=== PATIENT | female | born 1995 | race Caucasian/White ===

== ENCOUNTER 2019-04-12 11:27 | Emergency (ER) | payer BC ==
[~2019-04-12] VITALS: Ht 162.6 cm; Wt 70.8 kg
[2019-04-12 11:31] VITALS: Ht 162.6 cm; Wt 70.8 kg
[2019-04-12 13:46] VITALS: BP 123/78
== END 2019-04-12 13:46 | disposition home or self-care (01) ==
LOC: ED 11:27
DX: J01.90 Acute sinusitis, unspecified (principal); K08.89 Other specified disorders of teeth and supporting structures; Z98.890 Other specified postprocedural states; Z88.1 Allergy status to other antibiotic agents